=== PATIENT | male | born 1960 | race African-American/Black ===

== ENCOUNTER 2018-09-10 22:15 | Outpatient (RCR) | payer OTHER ==
[~2018-09-10] VITALS: Ht 172.7 cm; Wt 60.2 kg
[2018-09-10 14:42] VITALS: BP 125/72; PULSE 93; TEMP 97.4
[~2018-09-10 22:15] MED LIST: 00186-0370-20 IH; ASPIRIN 81M81 MG/TA2 PO; CARDIZEM CD 24240 MG PO; CENTRUM SILVER1 TA3 PO; COUMADIN 5MG5 MG/TAB PO; EPA/GLA1 SGL PO; FERROUS SULFAT324 M1 PO; FOLIC ACID 11 MG/TA1; FOSAMAX 35MG35 MG PO; HCTZ 25MG TAB25 MG PO; HYTRIN 2MG CAPSU2 MG PO; LETAIRIS5 MG PO; LIPITOR20 MG PO; PREDNISONE 2.52.5 MG PO; RT SPIRIVA18 MCG IH; VITAMIN D2000 I1; ZANTAC 150MG T150 MG; ZOCOR 10MG10 MG PO; [UNRECOGNIZED DRUG - OTHER]
[2018-09-11 09:32] VITALS: BP 119/78; PULSE 106; TEMP 97.5
[2018-09-11 16:04] VITALS: BP 117/71; PULSE 105; TEMP 98.4
[2018-09-12 07:51] VITALS: BP 143/79; PULSE 110; TEMP 97.4
== END 2018-09-12 09:37 | disposition home or self-care (01) ==
LOC: EUO 09-11 15:00
DX: Z45.2 Encounter for adjustment and management of vascular access device (principal); Z95.9 Presence of cardiac and vascular implant and graft, unspecified; Z94.2 Lung transplant status
CPT/HCPCS: C1751; J2185

== ENCOUNTER 2021-12-12 07:11 | Day surgery (SDC) | payer OTHER ==
[~2021-12-12] VITALS: Ht 175.3 cm; Wt 60.2 kg
[2021-12-12] MEDS ORDERED: ASPIRIN E.C. 8181 MG PO (07:44)
[2021-12-12] MEDS ORDERED: PROVENTIL0.09 MG/A1 IH (07:44)
[2021-12-12] MEDS ORDERED: ZOVIRAX 200MG200 MG PO (07:44)
[2021-12-12] MEDS ORDERED: FERROUS SU325 MG/TAB PO (07:45)
[2021-12-12] MEDS ORDERED: ZITHROMAX500 M2 PO (07:45)
[2021-12-12] MEDS ORDERED: ZOFRAN 4MG T4 MG/TAB PO (07:46)
[2021-12-12] MEDS ORDERED: PROTONIX20 MG PO (07:46)
[2021-12-12] MEDS ORDERED: PREDNISONE10 MG PO (07:47)
[2021-12-12] MEDS ORDERED: RIFADIN150 MG PO (07:47)
[2021-12-12] MEDS ORDERED: ROZEREM 8MG TABL8 MG PO (07:47)
[2021-12-12] MEDS ORDERED: PROGRAF 1MG1 MG PO (07:48)
[2021-12-12] MEDS ORDERED: FLOMAX 0.40.4 MG/CAP PO (07:48)
[2021-12-12] MEDS ORDERED: BACTRIM DS 8001 TAB PO (07:48)
[2021-12-12 07:50] VITALS: BP 133/82; PULSE 105; TEMP 97.4
[2021-12-12 09:40] VITALS: BP 124/83; PULSE 97; TEMP 97.4
--- NOTE | 2021-12-12 09:40 | NUR ---
Pt returned via cart to bay 1 post procedure. Pt ambulated to recliner in bay, given warm blankets and legs elevated. VSS-see flowsheet. Pt A&O. Given a muffin and OJ per request. Call light placed in reach and pt denies needs or complaints.
[2021-12-12 09:45] VITALS: BP 129/84; PULSE 92
[2021-12-12 10:00] VITALS: BP 129/73; PULSE 84
--- NOTE | 2021-12-12 10:33 | NUR ---
Pt tolerated oral intake. VS remain stable-see flowsheet. Dr Chang in to visit with pt post procedure. Discharge teaching completed, pt verbalized understanding. IV removed with catheter tip intact and pressure dressing applied. Pt dressed independently. Ambulated with pt to private vehicle for dc home with (ex) to drive. Pt left with all personal belongings and dc packet.
== END 2021-12-12 10:33 | disposition home or self-care (01) ==
LOC: SDCO 07:11
DX: Z12.11 Encounter for screening for malignant neoplasm of colon (principal); K64.0 First degree hemorrhoids; K21.9 Gastro-esophageal reflux disease without esophagitis; J44.9 Chronic obstructive pulmonary disease, unspecified
CPT/HCPCS: J2704